=== PATIENT | female | born 1935 | race Caucasian/White ===

== ENCOUNTER 2022-03-07 18:17 | Inpatient (IN) | payer MEDICARE ==
[~2022-03-07] VITALS: Ht 165.1 cm; Wt 77.8 kg
--- NOTE | 2022-03-07 03:30 | NUR ---
nitro quick not given, patient refused, state I dont have chest pain now.
[2022-03-07] MEDS ORDERED: ATOR10TA PO (20:00)
[2022-03-07] MEDS ORDERED: APIX5TAB PO (20:00)
[2022-03-07] MEDS ORDERED: AMLO2.5T4 PO (20:00)
--- NOTE | 2022-03-07 20:00 | NUR ---
Patient is a/ox4, NAD noted. Patient is able to walk with steady gait
[2022-03-07] MEDS ORDERED: ASPIRIN 81 MG TAB.CHEW PO ONE (20:15)
[2022-03-07] MEDS ORDERED: NITROGLYCERIN OINT 1 GM PACKET TP ONE ×2 (20:15→20:48)
[2022-03-07 20:18] LABS: HEMATOCRIT 31.1 % (31.2-41.9); MEAN CORPUSCULAR HEMOGLOBIN 27.8 uug (24.7-32.8); MEAN CORPUSCULAR VOLUME 79.3 fL (75.5-95.3); PLATELET COUNT (AUTO) 256 K/uL (179-408)
[2022-03-07 20:20] LABS: NEUTROPHILS % (MANUAL) 0 % (42-75)
[2022-03-07 20:39] LABS: CHLORIDE 91 mmol/L (98-107); POTASSIUM 4.7 mmol/L (3.5-5.1)
[2022-03-07] MEDS ORDERED: ASPIRIN 81 MG TAB.CHEW ONE (20:48)
--- NOTE | 2022-03-07 21:00 | NUR ---
Patient will be admitted to TELE room [address]donado
[2022-03-07 21:02] LABS: ALANINE AMINOTRANSFERASE 22 U/L (14-59); ALKALINE PHOSPHATASE 49 U/L (50-136); ASPARTATE AMINOTRANSFERASE 14 U/L (15-37); BILIRUBIN,DIRECT 0.2 mg/dL (0.0-0.2); BILIRUBIN,TOTAL 0.4 mg/dL (0.2-1.0); CARBON DIOXIDE 28 mmol/L (21-32); CREATININE 1.2 mg/dL (0.6-1.3); GLUCOSE 99 mg/dL (74-106); TOTAL PROTEIN, SERUM 7.6 g/dL (6.4-8.2); UREA NITROGEN, BLOOD 22 mg/dL (7-18)
[2022-03-07] MEDS ORDERED: FURO40TA5 PO (21:22)
[2022-03-07] MEDS ORDERED: POTA20TA83 PO (21:22)
[2022-03-07] MEDS ORDERED: DEXL60CA3 PO (21:22)
[2022-03-07] MEDS ORDERED: METF750T46 PO (21:22)
[2022-03-07] MEDS ORDERED: CARV6.252 PO (21:22)
[2022-03-07] MEDS ORDERED: LOSA25TA27 PO (21:22)
[2022-03-07] MEDS ORDERED: ENOXAPARIN SODIUM 80 MG/0.8 ML DISP.SYRIN SQ ONE (21:30)
--- NOTE | 2022-03-07 21:40 | NUR ---
Patient's son at bedside
[2022-03-07] MEDS ORDERED: ENOXAPARIN SODIUM 100 MG/ML DISP.SYRIN SQ ONE (21:47)
[2022-03-07] MEDS ORDERED: ONDANSETRON 4 MG/2 ML VIAL IV PRN (22:30)
[2022-03-07] MEDS ORDERED: NITROGLYCERIN 0.4 MG/TAB BOTTLE SL ONE (22:30)
[2022-03-07] MEDS ORDERED: ACETAMINOPHEN 325 MG TABLET PO PRN (22:30)
--- NOTE | 2022-03-07 22:47 | NUR ---
report given to Sahara HANSEN
--- NOTE | 2022-03-07 23:30 | NUR ---
Admitted patient in Tele floor under the care of Dr nuñez, Patient alert oriented, speak Farsi but understand Malaysian. Patient ambulatory, assist with toileting, no further complain of chest pain, oxygen sta 96% RA, Son at bedside then left took home all patient medication in bottle. Tele monitor sinus rhythm at this time, call light within reach.
--- NOTE | 2022-03-07 23:47 | NUR ---
Pt. admitted to TELE room 319 , under care of Dr. Maldonado Belongs List completed Sy RN aware of patient's arrival
[2022-03-08 00:10] VITALS: BP 134/61
[2022-03-08 04:16] VITALS: BP 141/59
[2022-03-08 06:51] LABS: HEMATOCRIT 30.1 % (31.2-41.9); MEAN CORPUSCULAR VOLUME 80.1 fL (75.5-95.3); PLATELET COUNT (AUTO) 244 K/uL (179-408)
[2022-03-08] MEDS ORDERED: PANTOPRAZOLE SODIUM 40 MG TABLET.DR PO SCH (07:00)
[2022-03-08 07:16] LABS: ALANINE AMINOTRANSFERASE 19 U/L (14-59); ALKALINE PHOSPHATASE 46 U/L (50-136); ASPARTATE AMINOTRANSFERASE 13 U/L (15-37); BILIRUBIN,TOTAL 0.3 mg/dL (0.2-1.0); CARBON DIOXIDE 27 mmol/L (21-32); CHLORIDE 95 mmol/L (98-107); CHOLESTEROL 147 mg/dL (<200); GLUCOSE 126 mg/dL (74-106); HDL CHOLESTEROL 38 mg/dL (40-60); MAGNESIUM 1.7 mg/dL (1.8-2.4); PHOSPHOROUS 3.4 mg/dL (2.5-4.9); POTASSIUM 4.7 mmol/L (3.5-5.1); TOTAL PROTEIN, SERUM 7.1 g/dL (6.4-8.2); TRIGLYCERIDES 209 MG/DL (30-150); UREA NITROGEN, BLOOD 19 mg/dL (7-18)
[2022-03-08 07:31] LABS: IRON, SERUM 38 ug/dL (50-175)
[2022-03-08] MEDS ORDERED: DEXTROSE 50% 50 ML DISP.SYRIN IV PRN (07:45)
[2022-03-08] MEDS ORDERED: INSULIN REGULAR, HUMAN 300 UNIT/3 ML VIAL SQ PRN (07:45)
[2022-03-08] MEDS ORDERED: MAGNESIUM OXIDE 400 MG TABLET PO ONE (08:00)
[2022-03-08] MEDS: APIXABAN 5 MG TABLET PO SCH ×2 (08:24→16:08)
[2022-03-08 08:30] VITALS: BP 136/67
[2022-03-08] MEDS: CARVEDILOL 6.25 MG TABLET PO SCH ×2 (08:31→16:15)
[2022-03-08] MEDS: LOSARTAN POTASSIUM 25 MG TABLET PO SCH ×2 (08:31→16:17)
[2022-03-08 08:40] LABS: THYROID STIMULATING HORMONE 0.473 mIU/mL (0.358-3.740)
[2022-03-08] MEDS: AMOXIcillin 500 MG CAPSULE PO SCH ×2 (08:44→15:59)
[2022-03-08] MEDS ORDERED: FUROSEMIDE 40 MG/4 ML VIAL IV SCH (09:00)
--- NOTE | 2022-03-08 09:00 | NUR ---
Pt is a/o x 4, [place]ian and Farsi speaking. had cardio consult and nephro consult. Obtained medical records from [facility]. Pt to have an echocardiogram today. Updated family on pt status. Comfort measures provided, call light within reach. Will continue to monitor.
[2022-03-08 11:44] VITALS: BP 114/57
[2022-03-08] MEDS: BLOOD SUGAR DIAGNOSTIC 1 EACH STRIP VI SCH ×2 (13:02→16:15)
[2022-03-08 16:00] VITALS: BP 113/62
[2022-03-08 16:17] VITALS: BP 113/62
[2022-03-08] MEDS ORDERED: AMOX500C2 PO (18:32)
--- NOTE | 2022-03-08 19:11 | NUR ---
Pt has been discharged. Pt's son picked up to take home. Pt stated she has home health nurse visits already and lives with family. No signs of acute distress. All discharge education provided to pt and son at bedside. All materials provided as well as medication direction. Copy of echo preliminary provided to pt. IV and ID bands removed. Pt is ambulatory with FWW. Refused to be wheeled down to car, preferred to walk with son using walker.
[2022-03-08] MEDS ORDERED: AMLODIPINE 2.5 MG TABLET PO SCH (21:00)
[2022-03-08] MEDS ORDERED: DOCUSATE SODIUM 250 MG CAPSULE PO SCH (21:00)
[2022-03-08] MEDS ORDERED: ATORVASTATIN 10 MG TABLET PO SCH (21:00)
[2022-03-08] MEDS ORDERED: DOCUSATE SODIUM 100 MG CAPSULE PO SCH (21:00)
== END 2022-03-08 19:00 | disposition home or self-care (01) | DRG 303 ==
LOC: ER 18:21 → TELE3 23:01
PROVIDERS: ADMIT Nurse Practitioner Acute Care; ATTEND Nurse Practitioner Acute Care
DX: I25.10 Atherosclerotic heart disease of native coronary artery without angina pectoris (principal); E87.1 Hypo-osmolality and hyponatremia; R07.9 Chest pain, unspecified; E66.9 Obesity, unspecified; E11.9 Type 2 diabetes mellitus without complications; E78.5 Hyperlipidemia, unspecified; I11.0 Hypertensive heart disease with heart failure; I50.9 Heart failure, unspecified; Z79.01 Long term (current) use of anticoagulants; Z86.711 Personal history of pulmonary embolism; Z90.5 Acquired absence of kidney; Z90.710 Acquired absence of both cervix and uterus; J84.10 Pulmonary fibrosis, unspecified; Z68.28 Body mass index [BMI] 28.0-28.9, adult; D63.8 Anemia in other chronic diseases classified elsewhere; K02.9 Dental caries, unspecified; Z20.822 Contact with and (suspected) exposure to COVID-19
CPT/HCPCS: 36415; 70030-TC; 71045; 83550; 83735; 84100; 84443; 84484; 85025; 85730; 93005; 93307; 97161; A4663; G0378; J1650; J1815; J1940